=== PATIENT | female | born 1980 | race Caucasian/White ===

== ENCOUNTER → 2016-11-05 | Outpatient (CLI) | payer OTHER ==
[~2016-11-05] MED LIST: MULTI VITAMIN1 EACH PO; PROBIOTIC1 EACH PO; SYNTHROID25 MCG PO; WELLBUTRIN SR150 M1 PO; ZANTAC150 MG PO; ZOLOFT100 MG PO; ZYRTEC10 M1 PO
--- NOTE | ~2016-11-05 | CR63 ---
[facility] A Service of [facility] RADIOLOGY TEXT RESULTS PATIENT: RIC SHIELDS LOCATION: [facility] : [birth year] UNIT #: [id number] AGE: [address]: Antonio Dean III, MD SEX: F ORDER DR: [id number] [facility] [address] [place], [place] [address] [id number] O MR#: [id number] Acc #: [id number] NAME: RIC SHIELDS : 1980 SEX: F STUDY DATE/TIME: 11/05/2016 8:07 UNIT: [facility] ROOM: STUDY DESCRIPTION: CR Chest 2 View Attending Physician: Antonio Dean III, M.D. Referring Physician: Antonio Dean III, M.D. Ordering Physician: Antonio Dean III, M.D. Primary Care Physician: Nubia Melgoza [facility] MEDICAL IMAGING REPORT This report is preliminary unless electronic signature is present EXAM Chest, PA and lateral, 11/05/2016. HISTORY Shortness of breath on exertion today, preop laparoscopic gastric banding. Morbid obesity. FINDINGS PA and lateral examination of the chest upright shows a good expansion of the parenchyma with a normal distribution of the pulmonary vascularity. There is no indication of congestion, effusion, infiltrate, tumor, or nodular density. The pleural reflections and diaphragmatic contours are normal. The cardiac silhouette and mediastinal anatomy is within normal limits. IMPRESSION Normal chest. Dictated by... Cedric Lewis M.D. THIS IS AN ELECTRONICALLY VERIFIED REPORT Cedric Lewis M.D. at 11/05/2016 5:34 PM KRT/ashutosh TD: 11/05/2016 11:17 JOB #: [id number] MEDICAL IMAGING REPORT Page 1 of 1 COPY
--- NOTE | ~2016-11-05 | EKG ---
PATIENT: RIC SHIELDS UNIT #: [id number] Ventricular Rate: 74 BPM Atrial Rate: 74 BPM P-R Interval: 156 ms QRS Duration: 94 ms Q-T Interval: 400 ms QTC Calculation(Bezet): 444 ms P Bloom[place]: 34 degrees Calculated R [place]: 6 degrees Calculated T [place]: 10 degrees Diagnosis Line: Normal sinus rhythm Diagnosis Line: Normal ECG Diagnosis Line: No previous ECGs available Diagnosis Line: Confirmed by SYD COVARRUBIAS MD ([id number]) on Diagnosis Line: 11/05/2016 12:08:32 PM INTERPRETING MD: MARCI JEFFERS
--- NOTE | ~2016-11-05 | CR97 ---
[facility] A Service of [facility] RADIOLOGY TEXT RESULTS PATIENT: RIC SHIELDS LOCATION: [facility] : 82 UNIT #: [id number] AGE: [address]: Antonio Dean III, MD SEX: F ORDER DR: [id number] [facility] [address] [place], [place] [address] [id number] O MR#: [id number] Acc #: [id number] NAME: RIC SHIELDS : 1980 SEX: F STUDY DATE/TIME: 11/05/2016 8:32 UNIT: [facility] ROOM: STUDY DESCRIPTION: CR Esophagram Attending Physician: Antonio Dean III, M.D. Referring Physician: Antonio Dean III, M.D. Ordering Physician: Antonio Dean III, M.D. Primary Care Physician: Nubia Melgoza [facility] MEDICAL IMAGING REPORT This report is preliminary unless electronic signature is present EXAM Esophagram. HISTORY Lap-Band surgery pending, preoperative evaluation. TECHNIQUE With the patient upright thin liquid barium was administered and multiple spot films were obtained. A total of 10 overhead spot films were obtained. Total fluoroscopy time 0.4 minutes. FINDINGS Esophagus is normal in caliber with no evidence of stricture, mass or mucosal irregularity. No hiatal hernia is seen. IMPRESSION Negative esophagram. Dictated by... Herman Jacobs M.D. THIS IS AN ELECTRONICALLY VERIFIED REPORT Herman Jacobs M.D. at 11/06/2016 11:22 AM KIMBERLY/glenn TD: 11/05/2016 17:36 JOB #: [id number] MEDICAL IMAGING REPORT Page 1 of 1 COPY
[2016-11-05 09:20] LABS: HEMATOCRIT 42.5 % (35.0-45.0); HEMOGLOBIN 13.5 gm/dL (12.0-16.0); MEAN CELL VOLUME 85.2 FL (83-96); MEAN CORPUSCULAR HEMOGLOBIN 27.1 PG (28-34); MEAN CORPUSCULAR HGB CONC 31.9 g/dL (30-36); MEAN PLATELET VOLUME 8.3 FL (6.5-11.5); RED BLOOD COUNT 4.99 X10e (3.90-5.30); RED CELL DISTRIBUTION WIDTH 16.1 % (11.0-15.5); WHITE BLOOD COUNT 8.4 X10e3 (4.0-10.5)
[2016-11-05 10:26] LABS: ALBUMIN SERUM 3.9 g/dL (3.5-5.0); BILIRUBIN,TOTAL 0.4 mg/dL (0.2-2.0); BUN/CREATININE RATIO 12.5; CREATININE SERUM 0.8 mg/dL (0.6-1.4); POTASSIUM 4.4 mmol/L (3.5-5.1); PROTEIN TOTAL SERUM 7.2 g/dL (6.0-8.3)
== END | disposition home or self-care (01) ==
LOC: CRAD 07:57 → CAMB 08:30
PROVIDERS: Surgery
DX: Z01.818 Encounter for other preprocedural examination (principal); E66.01 Morbid (severe) obesity due to excess calories
CPT/HCPCS: 36415; 71020; 74220; 80053; 80061; 84443; 85027; 93005

== ENCOUNTER → 2016-11-17 | Day surgery (SDC) | payer OTHER ==
--- NOTE | ~2016-11-17 | OR ---
Unit #: [id number] #: [id number] Patient: RIC SHIELDS [id number] [facility] [address] [facility]. [place], [place] [address] [id number] O MR#: [id number] NAME: RIC SHIELDS ROOM: Date of Procedure: 11/17/2016 Admission Date: 11/17/2016 Surgeon: Antonio Dean III, M.D. : 1980 Attending Physician: Antonio Dean III, M.D. Primary Care Physician: Nubia Pickard OPERATIVE REPORT PREOPERATIVE DIAGNOSIS Chronic morbid obesity. POSTOPERATIVE DIAGNOSIS Chronic morbid obesity. SECONDARY DIAGNOSIS Anterior paraesophageal hernia. PROCEDURES PERFORMED Laparoscopic adjustable gastric banding (AP standard with regular port) and laparoscopic paraesophageal hernia repair. SENIOR [employer] ADMINISTRATOR Kirk Espino M.D. SPECIMENS None. COMPLICATIONS None apparent. ESTIMATED BLOOD LOSS Minimal. INDICATIONS FOR PROCEDURE This is a 35-year-old lady, who has chronic morbid obesity with a BMI of 63 and no associated comorbidities. She has been through the bariatric program at [facility] and understands risks and benefits of the procedure. DESCRIPTION OF PROCEDURE After consent was obtained, including the risks and benefits of slippage, erosion, port dysfunction, and possible failure of weight loss due to noncompliance, the patient was taken to the operating room and placed in the supine position. General anesthetic was administered and the abdomen was prepped and draped in standard surgical fashion. I began by making a 2 cm incision just above and to the left of the umbilicus. I used a Visiport to enter the peritoneal cavity without any difficulty. C02 pneumoperitoneum was then established. Next, I placed a Unit #: [id number] #: [id number] Patient: RIC SHIELDS 5 mm port in the right upper quadrant, a 5 mm Roseann liver retractor in the subxiphoid region to provide exposure of the gastroesophageal junction. Next, a 10 mm port was placed in the left upper quadrant and a 5 mm port was placed in the left lateral subcostal region. I began by performing an examination of the GE junction to evaluate for a hiatal hernia. We then scored the peritoneal attachments overlying the angle of His. I then opened up the clear space in the gastrohepatic ligament, and then using 2 blunt graspers, I identified the small fat pad crossing over the right crura. I swept the fat anterior to the crura off the crura and using the pars flaccida, I created a retrogastric tunnel where the blunt grasper exited at the angle of His. Once I had made this tunnel safely, I then inserted an Allergan AP band into the abdominal cavity. This adjustable gastric band was then place around the upper part of the stomach and fastened and buckled anteriorly. We then tacked the lateral fundus over the band to the proximal pouch with 2 interrupted 0 Ethibond sutures. I then used a third stitch to imbricate the excess anterior stomach by going from the lesser curvature up towards where the last stitch was placed. We then had excellent hemostasis. I removed the Roseann liver retractor. We then removed the port tubing through the initial port incision. The rest of the ports were removed, and the pneumoperitoneum was released. I then left a small tail on the tubing. We then attached the port to the excess band tubing. We placed a piece of Prolene mesh along the back side of the port and used a Prolene stitch to anchor this mesh in place. We then trimmed the excess mesh so that just a small footprint of mesh was in place behind the port. I then inserted the tubing back into the abdominal cavity, and we placed the port into a small pocket that was made just inferior to where our initial port incision was made. The mesh was in direct contact with the fascia, and this will scar in place to hold the port in place. We then injected all the port sites with 0.25% plain Marcaine, and I reapproximated the skin edges with interrupted 4-0 Vicryl subcuticular sutures. Steri-strips were then applied. The patient tolerated the procedure without any problems and returned to the recovery room in stable condition. ADDENDUM After exposure of the GE junction, the patient was noted to have a small- to medium-sized anterior paraesophageal hernia. I scored the phrenoesophageal ligament, reduced the hernia defect and after identifying both the right and left crura, I reapproximated the defect with an interrupted 0 Ethibond [id number] suture. I then proceeded with the case as listed above. Dictated by... Antonio Dean III, M.D. VCL/charles TD: 11/19/2016 00:22 JOB #: [id number] Unit #: [id number] #: [id number] Patient: CORNELIUSRIC OPERATIVE REPORT Page 1 of 1 X Antonio Dean III, MD PROCEDURE OPERATIVE NOTE
--- NOTE | ~2016-11-17 | CR7 ---
[facility] A Service of [facility] RADIOLOGY TEXT RESULTS PATIENT: RIC SHIELDS LOCATION: [facility] : 82 UNIT #: [id number] AGE: [address]: Antonio Dean III, MD SEX: F ORDER DR: [id number] [facility] [address] [place], [place] [address] [id number] O MR#: [id number] Acc #: [id number] NAME: RIC SHIELDS : 1980 SEX: F STUDY DATE/TIME: UNIT: [facility] ROOM: STUDY DESCRIPTION: CR Abdomen Single AP View Attending Physician: Antonio Dean III, M.D. Ordering Physician: Antonio Dean III, M.D. Primary Care Physician: Nubia Melgo[facility] IMAGING REPORT This report is preliminary unless electronic signature is present EXAM Abdomen single view 11/17/2016 0920 hours HISTORY Morbid obesity with abdominal pain. Postop Lap-Band placement today. COMPARISON Preop esophagram 11/05/2016 FINDINGS Single view of the abdomen is compromised by large body habitus. The left flank and lower pelvis are excluded from the field of view. There is a Lap-Band projecting over the medial eleventh rib. It is somewhat horizontally oriented. It is oriented approximately 61 degrees from vertical. Vertical is somewhat difficult to establish as the patient has a significant rightward scoliosis with Lacey angle of 23 degrees centered at L1-2 interspace. The radiopaque tubing courses inferiorly through a port overlying the left iliac wing. There are multiple hyperdensities in the left mid abdomen and left lower quadrant favored to represent retained contrast within colonic diverticula. IMPRESSION 1. New Lap-Band is present overlying the medial left eleventh rib at the GE junction oriented at 61 degrees from vertical. 2. Radiopaque tubing courses inferiorly to a port seen in the left lower quadrant overlying the left iliac wing. 3. There is a rightward scoliosis centered at the L1-2 disc space with Lacey angle of 22.7 degrees. 4. Multiple hyperdensities are seen in the left abdomen. These are nonspecific. They may represent retained contrast within colonic diverticula. They do not appear to conform to the contours of the expected location of the left kidney. [facility] A Service of [facility] & [facility] RADIOLOGY TEXT RESULTS PATIENT: RIC SHIELDS LOCATION: [facility] : 84 UNIT #: [id number] AGE: [address]: Antonio Dean III, MD SEX: F ORDER DR: Dictated by... Danielle Garcia M.D. THIS IS AN ELECTRONICALLY VERIFIED REPORT Danielle Garcia M.D. at 11/17/2016 2:30 PM SMM/nayeli TD: 11/17/2016 14:20 JOB #: [id number] MEDICAL IMAGING REPORT Page 1 of 1 COPY
== END | disposition home or self-care (01) ==
LOC: CSUR 06:20
DX: E66.01 Morbid (severe) obesity due to excess calories (principal); K44.9 Diaphragmatic hernia without obstruction or gangrene; I10 Essential (primary) hypertension; F32.9 Major depressive disorder, single episode, unspecified; E03.9 Hypothyroidism, unspecified; F41.9 Anxiety disorder, unspecified; J30.9 Allergic rhinitis, unspecified; Z68.44 Body mass index [BMI] 60.0-69.9, adult; Z88.2 Allergy status to sulfonamides; Z91.041 Radiographic dye allergy status; Z91.048 Other nonmedicinal substance allergy status; Z79.899 Other long term (current) drug therapy; Z90.49 Acquired absence of other specified parts of digestive tract; Z98.890 Other specified postprocedural states
CPT/HCPCS: 74000; 84703; C1781; J0690; J1650; J1885; J2250; J2405; J2710; J3010; L8699